=== PATIENT | female | born 1945 | race Caucasian/White ===

== ENCOUNTER 2019-06-13 11:38 | Outpatient (CLI) | payer MEDICARE, SELFPAY ==
--- NOTE | 2019-06-13 11:41 | MM_ITS ---
WS: [id number] BILATERAL DIGITAL SCREENING MAMMOGRAPHY WITH CAD CLINICAL INFORMATION: SCREENING HISTORY: Screening mammogram. No current complaints. COMPARISON: TECHNIQUE: Bilateral CC and MLO views. FINDINGS: Scattered fibroglandular densities bilaterally. Lucent centered calcifications. Dystrophic calcificat ions. Prior biopsy markers upper outer left breast. Increasing punctate calcifications upper outer left breast some in a ductal distribution. Recommend s pot magnification views for further evaluation. Normal right breast. MM/[place] [id number] IMPRESSION: BI-RADS: 0-Incomplete: Need additional imaging evaluation FOLLOW UP: Need Additional Imaging
== END 2019-06-13 11:39 | disposition home or self-care (01) ==
LOC: RADSHAW 11:38
PROVIDERS: Family Provider Internal Medicine; PCP Internal Medicine; Visit Provider Internal Medicine
DX: Z12.31 Encounter for screening mammogram for malignant neoplasm of breast (principal)
CPT/HCPCS: 77067

== ENCOUNTER 2019-06-26 10:41 | Outpatient (CLI) | payer MEDICARE, SELFPAY ==
--- NOTE | 2019-06-26 10:42 | MM_ITS ---
WS: [id number] LEFT ADDITIONAL DIGITAL MAMMOGRAM WITH CAD HISTORY: ABNORMAL MAMMOGRAM COMPARISON: 06/13/2019, 07/09/2016. Technique: Magnification CC and MLO and true ML. Increasing calcifications at the prior biopsy site. There are benign dystrophic calcifications with a dditional new pleomorphic calcifications posterior to the biopsy clips. Notified Judie Frost MD at 06/26/2019 12:13 PM. MM/[place] [id number] IMPRESSION: BI-RADS: 4B-Suspicious: Intermediate FOLLOW UP: Stereotactic Biopsy Recommended Stereotactic biopsy recommended of the increasing pleomorphic calcifications at the prior biopsy site. These may be dystrophic calcifications related to the p rior biopsy.
== END 2019-06-26 10:42 | disposition home or self-care (01) ==
LOC: RADSHAW 10:41
PROVIDERS: Family Provider Internal Medicine; PCP Internal Medicine; Visit Provider Internal Medicine
DX: R92.8 Other abnormal and inconclusive findings on diagnostic imaging of breast (principal); R92.1 Mammographic calcification found on diagnostic imaging of breast
CPT/HCPCS: 77065

== ENCOUNTER 2021-12-15 14:36 | Outpatient (CLI) | payer MEDICARE, SELFPAY ==
--- NOTE | 2021-12-15 15:09 | XR_ITS ---
WS: [id number] DEXA (DUAL ENERGY X-RAY ABSORPTIOMETRY) Bone mineral density was performed using a [employer] machine. HISTORY: ASYMPTOMATIC POSTMENOPAUSAL STATUS COMPARISON: None available. Lumbar spine BMD (L1-L4): 1.088 g/cm2 T score: -0.8 Z score: 0.1 Total hip BMD: Left: 0.894 g/cm2. T score: -0.9 Z score: 0.2 Right: 0.916 g/cm2. T score: -0.7 Z score: 0.4 10 year probability of a major osteoporotic fracture is 19.8%. XR/XR DEXA axial skeleton* [id number] IMPRESSION: NORMAL BONE MINERAL DENSITY based upon the WHO classification for females.
== END 2021-12-15 14:37 | disposition home or self-care (01) ==
LOC: RAD 14:36
PROVIDERS: PCP Internal Medicine; Visit Provider Internal Medicine
DX: Z78.0 Asymptomatic menopausal state (principal)
CPT/HCPCS: 77080

== ENCOUNTER 2023-11-16 08:56 | Outpatient (CLI) | payer MEDICARE, SELFPAY ==
--- NOTE | 2023-11-16 | ECG_ITS ---
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
[2023-11-16 10:06] VITALS: BMI 37.0
[2023-11-16 11:01] VITALS: BP 122/68; PULSE 59
[2023-11-16] MEDS: regadenoson 0.4 Mg/5 ml Syringe IVP (11:04)
== END 2023-11-16 08:57 | disposition home or self-care (01) ==
LOC: CDL 08:57
PROVIDERS: PCP Internal Medicine; Visit Provider Internal Medicine
DX: R07.9 Chest pain, unspecified (principal)
CPT/HCPCS: 36415; 78452; 93017; 96374; A9500; J2785